=== PATIENT | female | born 1960 | race Caucasian/White ===

== ENCOUNTER 2018-06-21 01:56 | Outpatient (CLI) | payer OTHER, SELFPAY ==
[2018-06-21 09:53] LABS: Abs Immature Grans 0.01 k/cumm (0.0-0.09); Absolute Basophil Count 0.03 k/cumm (0.0-0.2); Absolute Eosinophil Count 0.06 k/cumm (0.0-0.7); Absolute Lymphocyte Count 1.19 k/cumm (1.2-3.4); Absolute Monocyte Count 0.85 k/cumm (0.11-0.7); Absolute Neutrophil Count 2.74 k/cumm (1.2-6.7); Basophils % 0.6; Eosinophils % 1.2; HGB 14.9 g/dL (12.0-15.5); Immature Grans % 0.2; Lymphocytes % 24.4; Mean Corp. HGB Concentration 33.9 g/dL (32.0-36.0); Mean Corpuscular Hemoglobin 30.7 pg (27.0-33.0); Mean Corpuscular Volume 90.7 fL (80-95); Mean Platelet Volume 8.6 fL (8.0-11.0); Monocytes % 17.4; Neutrophils % 56.2; Platelet Count 342 x1000/uL (130-400); RBC 4.85 m/cumm (4.00-5.20); RBC Distribution Width 13.1 % (11.7-14.6); White Blood Cell Count 4.88 k/cumm (4.4-10.8)
[2018-06-21 10:58] LABS: ALT 24 U/L (12-78); AST 22 U/L (15-37); Alkaline Phosphatase 70 U/L (46-116); Anion Gap 10.4 mmol/L (3-11); BUN 9 mg/dL (7-18); Bilirubin, Total 0.3 mg/dL (0.2-1.0); CO2 26.6 mmol/L (21.0-32.0); CREATININE 0.68 mg/dL (0.55-1.02); Calcium 9.5 mg/dL (8.5-10.1); Chloride 102 mmol/L (98-107); Glucose 105 mg/dL (70-100); Potassium 4.3 mmol/L (3.5-5.1); Sodium 139 mmol/L (136-145); TSH (W/Ref FT4) 1.69 uIU/mL (0.358-3.74); Total Protein 7.2 g/dL (6.4-8.2)
== END 2018-06-21 02:16 ==
PROVIDERS: PCP Family Medicine; Visit Provider Family Medicine
DX: Z00.00 Encounter for general adult medical examination without abnormal findings (principal); Z13.0 Encounter for screening for diseases of the blood and blood-forming organs and certain disorders involving the immune mechanism; F41.9 Anxiety disorder, unspecified; Z13.228 Encounter for screening for other metabolic disorders
CPT/HCPCS: 36415; 80053; 84443; 85025

== ENCOUNTER 2019-05-21 11:05 | Outpatient (CLI) | payer OTHER, SELFPAY ==
--- NOTE | 2019-05-21 10:45 | DI.RAD_ITS ---
EXAM: XR CERVICAL SPINE COMP 4-5V INDICATION: pain. COMPARISON: No exams were available for comparison TECHNIQUE: 2D digital imaging was performed. FINDINGS: The odontoid is intact. The lateral masses are well aligned. There is normal alignment of the cervical spine. There is disc space narrowing from C2-C3 through C6-C7. There are endplate osteophytes at all levels of the cervical spine. There is neural foraminal narrowing at C3-4, C4-C5 and C6-C7 on the right an d C4-C5 and C5-C6 on the left. No acute fractures or subluxations are seen in the cervical spine. The prevertebral soft tissues are unremarkable. IMPRESSION: Moderate degenerative changes in the cervical spine.
--- NOTE | 2019-05-21 11:00 | DI.RAD_ITS ---
EXAM: XR WRIST RT COMPLETE INDICATION: pain. COMPARISON: No exams were available for comparison TECHNIQUE: 2D digital imaging was performed. FINDINGS: There is no acute fracture or dislocation. The articular surfaces are well maintained. The bones ar e intact and normally mineralized. The soft tissues are unremarkable. IMPRESSION: No acute abnormality.
== END 2019-05-21 11:25 ==
PROVIDERS: PCP Nurse Practitioner; Visit Provider Orthopaedic Surgery
DX: M25.531 Pain in right wrist (principal); M54.2 Cervicalgia; M50.321 Other cervical disc degeneration at C4-C5 level; M50.322 Other cervical disc degeneration at C5-C6 level; M50.323 Other cervical disc degeneration at C6-C7 level
CPT/HCPCS: 72050; 73110

== ENCOUNTER 2020-07-22 04:47 | Outpatient (CLI) | payer OTHER, SELFPAY ==
[2020-07-22 09:15] LABS: Hemoglobin A1C 5.5 % (<5.7)
[2020-07-22 10:19] LABS: CREATININE 0.84 mg/dL (0.55-1.02); Calculated LDL 152 mg/dL (<100); Cholesterol 247 mg/dL (<200); HDL Cholesterol 90 mg/dL (40-60); Triglyceride 25 mg/dL (<150)
== END 2020-07-22 05:07 ==
PROVIDERS: PCP Nurse Practitioner; Visit Provider Nurse Practitioner
DX: M18.11 Unilateral primary osteoarthritis of first carpometacarpal joint, right hand (principal); Z13.6 Encounter for screening for cardiovascular disorders; Z13.1 Encounter for screening for diabetes mellitus
CPT/HCPCS: 36415; 80061; 82565; 83036

== ENCOUNTER 2020-08-04 02:37 | Outpatient (CLI) | payer OTHER, SELFPAY ==
--- NOTE | 2020-08-04 07:30 | DI.US_ITS ---
EXAM: US SOFT TISSUE HEAD OR NECK CLINICAL HISTORY: RT SIDED NECK LUMP, R22.1. TECHNIQUE: Ultrasound was performed using standard protocol. COMPARISON: No exams were available for comparison FINDINGS: Sonographic assessment utilizing grayscale and color Doppler imaging was performed and targeted to th e area of clinical concern. Palpable abnormality corresponds to the submandibular gland. The gland appears heterogeneous and atr ophic. No focal mass is identified. The left submandibular gland has a normal appearance. Normal s ized cervical lymph nodes are noted. Right submandibular gland measures 2.6 x 0.9 by 2.3 cm. Left s ubmandibular gland measures 4.7 cm by 1.3 cm by 2.5 cm.. IMPRESSION: Heterogeneous, atrophic appearing right submandibular gland appears to correspond to the palpable ab normality. This could be secondary to prior episodes of sialadenitis. DATA REPOSITORY:
== END 2020-08-04 02:57 ==
PROVIDERS: PCP Nurse Practitioner; Visit Provider Nurse Practitioner
DX: R22.1 Localized swelling, mass and lump, neck (principal); K11.8 Other diseases of salivary glands
CPT/HCPCS: 76536

== ENCOUNTER 2021-05-28 02:09 | Outpatient (CLI) | payer OTHER, SELFPAY ==
--- NOTE | 2021-05-28 06:45 | DI.MAMMO_ITS ---
Exam(s) MAMMO SCREENING EXAM: MAMMO SCREENING CLINICAL HISTORY: screening, Z13.29 TECHNIQUE: Mammograms were interpreted according to the usual protocol including computer analysis w XMS Penvision CAD system, tomosynthesis and C-view imaging. COMPARISON: 2006 through 2019 from [facility]. FINDINGS: The breasts are composed of heterogeneously dense fibroglandular densities, Breast Density category C . No suspicious masses or suspicious microcalcifications are seen. No skin thickening or abnormal axillary lymph nodes are seen. There has been no significant change from prior exams. IMPRESSION: BI-RADS Category 1, Negative mammogram. Yearly screening mammography is recommended. Breast Density Category C, heterogeneously Dense. The mammogram demonstrates the patient's breast tissue is dense. Dense breast tissue is very common a nd is not abnormal but dense breast tissue can make it harder to find cancer on a mammogram. Also, de nse breast tissue may increase breast cancer risk. This information about the result of the mammogram report was provided to the patient to raise their awareness. Use this report when you speak with the patient about their risks for breast cancer, which includes their family history. At that time, you may recommend additional screening tests (Ultrasound or MRI) as they might be useful based on their r isk. A negative radiographic report should not delay biopsy if a dominant or clinically suspicious mass is present. Up to ten percent of cancers are not identified on mammography. A negative report may reinforce clinical impression. Adenosis and dense breasts may obscure an underlying neoplasm. False positive reports average 6 to 10%.
== END 2021-05-28 02:29 ==
PROVIDERS: PCP Nurse Practitioner; Visit Provider Nurse Practitioner
DX: Z12.31 Encounter for screening mammogram for malignant neoplasm of breast (principal)
CPT/HCPCS: 77063; 77067

== ENCOUNTER 2021-07-22 03:05 | Outpatient (CLI) | payer OTHER, SELFPAY ==
--- NOTE | 2021-07-22 08:00 | DI.DEXA_ITS ---
Exam(s) XR DEXA BONE DENSITY W/WO REBA EXAM: XR DEXA BONE DENSITY W/WO REBA CLINICAL HISTORY: screeNING FOR OSTEOPOROSIS IN POSTMENOPAUSAL WOMAN,Z78.0 TECHNIQUE: CloudSafe C densitometer COMPARISON: No exams were available for comparison FINDINGS: Lateral view of the thoracic and lumbar spine shows no evidence of compression fractures. Bone mineral density measurements of the lumbar spine correspond to a total T-score of 0.1, in the no rmal range. Bone mineral density measurements of the left hip correspond to a total T-score of -1.9. The femora l neck T-score is -2.2, in the osteopenic range. The left forearm bone mineral density measurements correspond to a T-score of the distal 3rd of -1.4 . Total T-score -2.4. WSHO FRAX: ten year risk of major osteoporotic fracture calculated at 18 percent. Ten year risk of hip fracture calculated at 2.8 percent.. IMPRESSION: Normal bone mineral density of the lumbar spine. Osteopenia of the left hip and left forearm.
== END 2021-07-22 03:25 ==
PROVIDERS: PCP Nurse Practitioner; Visit Provider Nurse Practitioner
DX: Z78.0 Asymptomatic menopausal state (principal); Z13.820 Encounter for screening for osteoporosis; M85.89 Other specified disorders of bone density and structure, multiple sites
CPT/HCPCS: 77080

== ENCOUNTER → 2022-04-29 16:49 | Outpatient (CLI) | payer OTHER, SELFPAY ==
--- NOTE | 2022-04-29 16:30 | DI.RAD_ITS ---
Exam(s) XR CHEST 2V PA LATERAL EXAM: XR CHEST 2V PA LATERAL CLINICAL HISTORY: COUGH--R05.9. TECHNIQUE: 2D digital imaging was performed. COMPARISON: No exams were available for comparison FINDINGS: 2 views: Heart size is upper normal. The mediastinum is not widened. Lungs are clear. No infiltrates nor pleural effusions. IMPRESSION: No acute pulmonary findings. DATA REPOSITORY: RADIATION DOSE DELIVERED:
--- NOTE | 2022-04-29 17:39 | DI.VRAD_ITS ---
PROCEDURE INFORMATION: Exam: XR Chest Exam date and time: 04/29/2022 5:03 PM Age: 62 years old Clinical indication: Cough TECHNIQUE: Imaging protocol: Radiologic exam of the chest. Views: 2 views. COMPARISON: CR XR CERVICAL SPINE COMP 4-5V 05/21/2019 11:05 AM FINDINGS: Lungs: Unremarkable. No consolidation. Pleural spaces: Unremarkable. No pleural effusion. No pneumothorax. Heart/Mediastinum: Unremarkable. No cardiomegaly. Bones/joints: Unremarkable. IMPRESSION: No acute findings. Dictated and Authenticated by: Analisa So MD. Ordering:CAMILLE Diaz MD
== END ==
PROVIDERS: PCP Nurse Practitioner; Visit Provider Physician Assistant
DX: R05.9 Cough, unspecified (principal)
CPT/HCPCS: 71046; 84443; 85025; 86308

== ENCOUNTER 2022-04-29 20:43 | Outpatient (REF) | payer OTHER, SELFPAY ==
[2022-04-29 20:55] LABS: Abs Immature Grans 0.01 10^3/uL (0.0-0.06); Absolute Basophil Count 0.05 10^3/uL (0.0-0.2); Absolute Eosinophil Count 0.18 10^3/uL (0.0-0.7); Absolute Lymphocyte Count 1.73 10^3/uL (1.2-3.4); Absolute Monocyte Count 0.76 10^3/uL (0.1-0.8); Absolute Neutrophil Count 3.65 10^3/uL (1.2-6.7); Basophils % 0.8; Eosinophils % 2.8; HCT 42.9 % (36.0-46.0); HGB 14.8 g/dL (11.2-15.7); Immature Grans % 0.2; Lymphocytes % 27.1; MCHC 34.5 % (32.0-36.0); MCV 90 fL (80-95); MPV 9.7 fL (8.0-11.0); Monocytes % 11.9; Neutrophils % 57.2; Platelet Count 398 10^3/uL (130-400); RBC 4.77 10^6/uL (3.93-5.22); RDW 12.7 % (11.7-14.6); WBC 6.38 10^3/uL (4.4-10.8)
[2022-04-29 21:02] LABS: Mono Screening Negative (Negative)
[2022-04-29 21:20] LABS: TSH (W/Ref FT4) 1.46 uIU/mL (0.36-3.74)
== END 2022-04-29 20:44 | disposition home or self-care (01) ==
LOC: LBN 20:43
PROVIDERS: PCP Nurse Practitioner; Visit Provider Physician Assistant
DX: R05.9 Cough, unspecified (principal)
CPT/HCPCS: 84443; 85025; 86308

== ENCOUNTER 2022-09-26 02:25 | Outpatient (CLI) | payer OTHER, SELFPAY ==
--- NOTE | 2022-09-26 07:15 | DI.MAMMO_ITS ---
Exam(s) MAMMO SCREENING EXAM: MAMMO SCREENING CLINICAL HISTORY: screening,z12.39. TECHNIQUE: Bilateral full field digital CC and MLO mammographic images were obtained with 3D tomosyn thesis and utilizing computer aided detection (CAD). COMPARISON: Prior mammograms were reviewed. FINDINGS: There has been no significant change in the appearance and distribution of the fibroglandular tissue. There are no new obvious spiculated masses nor malignant appearing microcalcification groups. Benign-appearing microcalcification group in medial aspect left breast is again noted as are other ca lcifications in both breasts. There are no new malignant-appearing microcalcification groups in eith er breast. There is no significant architectural distortion nor skin thickening-retraction. IMPRESSION: No radiographic evidence of malignancy. Stable benign-appearing findings. BI-RADS Category 1 - Negative Breast Density - Category C - Heterogeneously dense Breast density Category C or D implies that the patient has dense breast tissue. Dense breast tissue can make it harder to find cancer on a mammogram. Dense breast tissue is also associated with an incr eased risk of breast cancer. This information about the result of the mammogram report was provided to the patient to raise their awareness. Use this report when you speak with the patient about their risks for breast cancer, which includes their family history. At that time, you may recommend additional screening tests (Ultrasoun d or MRI) as these tests may add significant information. A negative radiographic report should not delay biopsy if a dominant or clinically suspicious mass is present. Up to ten percent of cancers are not identified on mammography. A negative report may reinforce clinical impression. Adenosis and dense breasts may obscure an underlying neoplasm. False positive reports average 6 to 10%. Patient will receive a letter notifying them of these results.
== END 2022-09-26 02:45 ==
LOC: DI 02:25
PROVIDERS: PCP Family Medicine; Visit Provider Nurse Practitioner Family
DX: Z12.31 Encounter for screening mammogram for malignant neoplasm of breast (principal); N60.81 Other benign mammary dysplasias of right breast; N60.82 Other benign mammary dysplasias of left breast
CPT/HCPCS: 77063; 77067

== ENCOUNTER 2023-06-13 15:10 | Outpatient (REF) | payer MEDICARE, SELFPAY ==
[2023-06-13 15:53] LABS: Bilirubin Negative (Negative); Blood Negative (Negative); Clarity Clear (Clear); Glucose Negative (Negative); Ketones Negative (Negative); Leukocyte Esterase Negative (Negative); Nitrite Negative (Negative); Specific Gravity 1.015 (1.005-1.025); Urobilinogen 0.2 mg/dL (Up to 0.2)
== END 2023-06-13 15:11 | disposition home or self-care (01) ==
LOC: LBN 15:10
PROVIDERS: PCP Family Medicine; Visit Provider Nurse Practitioner Family
DX: R39.15 Urgency of urination (principal)
CPT/HCPCS: 81003

== ENCOUNTER 2023-07-12 17:53 | Outpatient (REF) | payer MEDICARE, SELFPAY | END 2023-07-12 17:54 | disposition home or self-care (01) | LOC: LBN 17:53 | PROVIDERS: PCP Family Medicine; Visit Provider Physician Assistant | DX: J02.9 Acute pharyngitis, unspecified (principal) | CPT/HCPCS: 87070 ==

== ENCOUNTER 2023-09-07 09:07 | Outpatient (CLI) | payer MEDICARE, SELFPAY ==
[2023-09-07 10:18] LABS: HCT 43.3 % (36.0-46.0); HGB 14.6 g/dL (11.2-15.7); MCH 30.4 pg (27.0-33.0); MCHC 33.7 % (32.0-36.0); MCV 90 fL (80-95); Platelet Count 384 10^3/uL (130-400); RBC 4.81 10^6/uL (3.93-5.22); RDW 12.7 % (11.7-14.6); RDW-SD 42.1 fL; WBC 6.28 10^3/uL (4.4-10.8)
[2023-09-07 10:40] LABS: Calculated LDL 171 mg/dL (<100); Cholesterol 270 mg/dL (<200); HDL Cholesterol 94 mg/dL (40-60); Triglyceride 28 mg/dL (<150)
[2023-09-07 10:42] LABS: Hemoglobin A1C 5.4 % (<5.7)
[2023-09-07 10:44] LABS: ALT 24 U/L (14-59); AST 21 U/L (15-37); Albumin 3.9 g/dL (3.4-5.0); Alkaline Phosphatase 60 U/L (46-116); Anion Gap 9.2 mmol/L (3-11); BUN 10 mg/dL (7-18); Bilirubin, Total 0.6 mg/dL (0.2-1.0); CO2 27.8 mmol/L (21.0-32.0); CREATININE 0.8 mg/dL (0.55-1.02); Calcium 9.7 mg/dL (8.5-10.1); Chloride 102 mmol/L (98-107); Estimated GFR 81.72 (mL/min/1.73m2); Glucose 99 mg/dL (74-106); Sodium 139 mmol/L (136-145); Total Protein 7.2 g/dL (6.4-8.2)
== END 2023-09-07 09:08 | disposition home or self-care (01) ==
LOC: LOS 09:07
PROVIDERS: Nurse Practitioner Family; PCP Family Medicine; Referring Provider Family Medicine; Visit Provider Family Medicine
DX: R20.0 Anesthesia of skin (principal); Z80.3 Family history of malignant neoplasm of breast; M18.11 Unilateral primary osteoarthritis of first carpometacarpal joint, right hand; Z00.00 Encounter for general adult medical examination without abnormal findings; E11.51 Type 2 diabetes mellitus with diabetic peripheral angiopathy without gangrene; E78.5 Hyperlipidemia, unspecified
CPT/HCPCS: 36415; 80053; 80061; 85027; 83036

== ENCOUNTER → 2023-09-28 04:38 | Outpatient (CLI) | payer MEDICARE, SELFPAY ==
--- NOTE | 2023-09-28 15:35 | DI.MAMMO_ITS ---
Exam(s) MAMMO SCREENING EXAM: MAMMO SCREENING CLINICAL HISTORY: screening,z12.39 TECHNIQUE: Mammograms were interpreted according to the usual protocol including computer analysis w Side.Cr CAD system, tomosynthesis and C-view imaging. COMPARISON: [id number] FINDINGS: The breasts are composed of heterogeneously dense fibroglandular densities, Breast Density category C . No suspicious masses or suspicious microcalcifications are seen. Stable nodule superior left breast. No skin thickening or abnormal axillary lymph nodes are seen. There has been no significant change from prior exams. IMPRESSION: BI-RADS Category 2 - Negative Mammogram with benign findings. Yearly screening mammography is recommended. Breast Density Category C, heterogeneously Dense. The mammogram demonstrates the patient's breast tissue is dense. Dense breast tissue is very common a nd is not abnormal but dense breast tissue can make it harder to find cancer on a mammogram. Also, de nse breast tissue may increase breast cancer risk. This information about the result of the mammogram report was provided to the patient to raise their awareness. Use this report when you speak with the patient about their risks for breast cancer, which includes their family history. At that time, you may recommend additional screening tests (Ultrasound or MRI) as they might be useful based on their r isk. A negative radiographic report should not delay biopsy if a dominant or clinically suspicious mass is present. Up to ten percent of cancers are not identified on mammography. A negative report may reinforce clinical impression. Adenosis and dense breasts may obscure an underlying neoplasm. False positive reports average 6 to 10%.
== END ==
PROVIDERS: PCP Family Medicine; Visit Provider Family Medicine
DX: Z12.31 Encounter for screening mammogram for malignant neoplasm of breast (principal)
CPT/HCPCS: 77063; 77067

== ENCOUNTER → 2023-10-10 08:27 | Outpatient (BNVA) | payer MEDICARE, SELFPAY | PROVIDERS: PCP Family Medicine; Referring Provider Family Medicine; Visit Provider Student in an Organized Health Care Education/Training Program | DX: M65.342 Trigger finger, left ring finger (principal); M65.352 Trigger finger, left little finger | CPT/HCPCS: 99202 ==

== ENCOUNTER 2023-10-19 13:08 | Day surgery (SDC) | payer MEDICARE, SELFPAY ==
--- NOTE | 2023-10-19 12:41 | W.PM.DSUDISC ---
Date of service: 10/19/23 Time of Service: 14:30 Discharge Plan Disposition Patient Disposition: Home Condition: Stable Discharge Details Attending Provider: Lloyd Dasilva Primary Care Provider: Florin Townsend Home Meds and New Rx's Prescriptions: Continued timolol 0.25 % drops 1 drp ophthalmic (eye) DAILY latanoprost 0.005 % drops 1 drp ophthalmic (eye) DAILY estradiol [Estrace] 0.01 % (0.1 mg/gram) cream 1 g vaginal .2x/week Qty: 42.5 2RF Discharge Instructions Additional Instructions: Surgery: Left ring and little finger trigger releases Activity: Protect hand for a few weeks. Gently increase finger motion and hand gripping to prevent stiffness. Recommend elevation to minimize swelling and discomfort. Prescriptions: None Resume home medicines, use [id number] Tylenol (acetaminophen) as needed for mild pain and ibuprofen (Motrin) or naproxen (Aleve) as needed for moderate to severe pain and swelling. Dressings: Leave dressing in place for 3 days. May then remove and leave open to air or cover incision with Band-Aid. May get wet after 5 days. Follow-up: 10-[address] Dasilva Please call the office during business hours with any questions or concerns. Discharge Orders Discharge Orders: Discharge Order (Routine); Ordered 10/19/23 Ordered By: Lloyd Dasilva DS: Diagnosis Discharge Diagnosis (1) Trigger finger, left ring finger: Status: Acute (2) Trigger finger, left little finger: Status: Acute
--- NOTE | 2023-10-19 12:42 | ROE_ITS ---
Date of service: 10/19/23 Time of Service: 14:30 Operative Note Operative Note DATE OF PROCEDURE: 10/19/23 PRE-OP DIAGNOSIS: Left ring and small trigger fingers PROCEDURE: 1. Left ring finger trigger release, CPT# 37880 2. Left small finger trigger release, CPT# 09606 SURGEON: Lloyd Dasilva SENIOR RESIDENT CARE DIRECTOR: None None ANESTHESIA TYPE: Local By Surgeon Refer to Anesthesia Record ESTIMATED BLOOD LOSS: 2 TOURNIQUET TIME: 0 COMPLICATIONS: None Patient was transported to: same day Patient's condition: stable Indications: Please see complete medical record for details. Procedure Description: In the operating room, the patient was positioned supine on the stretcher. All bony prominences were padded. Preoperative antibiotics were omitted. The correct patient, procedure, and side of the procedure were all verified prior to beginning. Local anesthesia was induced about the sites with 10cc of 1% lid ocaine containing epinephrine buffered with 1 cc of sodium bicarbonate. The Left hand was prepped and draped in the usual sterile fashion. Proper analgesia was confirmed. A small volar longitudinal approach was made overlying the ring finger MCP joint. Soft tissues were swept to the sides and retracted to expose the A1 gricel. The release was started centrally with a knife and completed at the proximal and distal margins with tenotomy scissors. Care was taken to protect the flexor tendons. The tendons were inspected and showed moderate fraying and bulbous degeneration, but no significant tearing. Appropriate flexor tendon excursion was confirmed. The patient readily demonstrated full range of motion of the finger without triggering. A small volar longitudinal approach was made overlying the small finger MCP joint. Soft tissues were swept to the sides and retracted to expose the A1 gricel. The release was started centrally with a knife and completed at the proximal and distal margins with tenotomy scissors. Care was taken to protect the flexor tendons. The tendons were inspected and were intact. Appropriate flexor tendon excursion was confirmed. The patient readily demonstrated full range of motion of the finger without triggering. The small incisions were irrigated and then dried. Hemostasis was appropriate. The incisions were closed using 3-0 nylon in a horizontal mattress fashion. Xeroform was applied followed by gauze and the hand was gently compressed with an [employer] bandage. The patient tolerated local anesthesia without complication and was transferred out of the operating room in a stable condition.
[2023-10-19 13:34] VITALS: BP 121/83; PULSE 75; RESP 16; TEMP 36.6; O2SAT 98
[2023-10-19] MEDS: Lidocaine 1% Multi-Dose W/EPI 1/100,000 50 ML VIAL (14:29)
[2023-10-19] MEDS: Sodium Bicarbonate 50 MEQ/50 ML VIAL (14:29)
[2023-10-19 14:59] VITALS: BP 119/79; PULSE 59; RESP 16; TEMP 36.5; O2SAT 98
== END 2023-10-19 15:20 | disposition home or self-care (01) ==
LOC: SUR 13:09
PROVIDERS: PCP Family Medicine; Visit Provider Student in an Organized Health Care Education/Training Program
PROC: (CPT 26055; principal; 2023-10-19 14:30)
DX: M65.342 Trigger finger, left ring finger (principal); M65.352 Trigger finger, left little finger
CPT/HCPCS: 26055 ×2; J2004

== ENCOUNTER → 2023-11-01 09:27 | Outpatient (BNVA) | payer MEDICARE, SELFPAY | PROVIDERS: PCP Family Medicine; Referring Provider Family Medicine; Visit Provider Student in an Organized Health Care Education/Training Program | DX: Z47.89 Encounter for other orthopedic aftercare (principal); R60.0 Localized edema ==

== ENCOUNTER → 2024-05-31 07:45 | Outpatient (BNVA) | payer MEDICARE, SELFPAY | PROVIDERS: PCP Family Medicine; Referring Provider Family Medicine; Visit Provider Physical Therapy Assistant | DX: L72.3 Sebaceous cyst (principal) | CPT/HCPCS: 11401; 99213 ==

== ENCOUNTER 2024-09-26 01:33 | Outpatient (CLI) | payer MEDICARE, SELFPAY ==
[2024-09-26 16:09] LABS: Cholesterol 235 mg/dL (<200); HDL Cholesterol 98 mg/dL (>or=50)
[2024-09-26 16:13] LABS: Triglyceride <25 mg/dL (<150)
[2024-09-26 16:49] LABS: LDL CHOLESTEROL 128 mg/dL (<100)
[2024-09-27 10:02] LABS: HBs Antibody, Quant 205.2 mIU/mL (See Note); Hep B Surface Ab Positive (See Note); Hepatitis B Core Antibody Negative (Negative); Hepatitis B Surface Antigen Negative (Negative)
[2024-09-27 10:07] LABS: Hepatitis C Ab w Rflx HCV PCR Negative (Negative)
[2024-09-27 10:17] LABS: Measles IgG Antibody Positive (See Note)
[2024-09-27 11:56] LABS: HIV-1/2 Ag & Ab Screen Negative (Negative)
== END 2024-09-26 01:34 | disposition home or self-care (01) ==
PROVIDERS: PCP Family Medicine; Visit Provider Family Medicine
DX: Z11.59 Encounter for screening for other viral diseases (principal); E78.5 Hyperlipidemia, unspecified; Z00.00 Encounter for general adult medical examination without abnormal findings
CPT/HCPCS: 36415; 80061; 83721; 86704; 86706; 86803; 87340; 87389; 86765

== ENCOUNTER 2024-10-24 00:39 | Outpatient (CLI) | payer MEDICARE, SELFPAY ==
--- NOTE | 2024-10-24 06:30 | DI.MAMMO_ITS ---
Exam(s) MAMMO SCREENING EXAM: MAMMO SCREENING CLINICAL HISTORY: screening,z12.39. TECHNIQUE: Bilateral full field digital CC and MLO mammographic images were obtained with 3D tomosyn thesis and utilizing computer aided detection (CAD). COMPARISON: Prior mammograms were reviewed. FINDINGS: Fibroglandular tissue pattern is again noted be moderately dense There are no new right breast findings. In the left breast on the MLO 3D imaging there is a in asymmetric density-possible nodule located 10 cm in from the nipple on the MLO view, slightly above the midline. This measures approximately 8 x 4 mm. May represent a benign intramammary lymph node but was not evident on prior studies. There are no malignant-appearing microcalcifications in this group nor elsewhere in either breast. There is no significant architectural distortion nor skin thickening-retraction. IMPRESSION: 1. No radiographic evidence of malignancy in the right breast. 2. Nodular density in the left breast as seen on the MLO view, 10 cm in from the nipple. Spot compre ssion left breast MLO view and breast ultrasound recommended. BI-RADS Category 0 - Incomplete: Need additional imaging evaluation Breast Density - Category C - Heterogeneously dense Breast density Category C or D implies that the patient has dense breast tissue. Dense breast tissue can make it harder to find cancer on a mammogram. Dense breast tissue is also associated with an incr eased risk of breast cancer. This information about the result of the mammogram report was provided to the patient to raise their awareness. Use this report when you speak with the patient about their risks for breast cancer, which includes their family history. At that time, you may recommend additional screening tests (Ultrasoun d or MRI) as these tests may add significant information. A negative radiographic report should not delay biopsy if a dominant or clinically suspicious mass is present. Up to ten percent of cancers are not identified on mammography. A negative report may reinforce clinical impression. Adenosis and dense breasts may obscure an underlying neoplasm. False positive reports average 6 to 10%. Patient will receive a letter notifying them of these results.
--- NOTE | 2024-10-24 06:30 | DI.DEXA_ITS ---
Exam(s) XR DEXA BONE DENSITY W/WO REBA EXAM: XR DEXA BONE DENSITY W/WO REBA CLINICAL HISTORY: osteopenia,screening for osteoporosis in postmenopausal woman,z78.0 TECHNIQUE: Routine DEXA evaluation of the lumbar spine, hip, or forearm. COMPARISON: CR XR DEXA BONE DENSITY W/WO REBA from 07/22/2021 FINDINGS: Performed on a Hologic unit. Lateral image: Lateral image reveals superior endplate compression fractures of L3 and L5 which are m ore evident than 07/22/2021. Lumbar Spine total T-score: 0.7. Prior reading in July 2021 was 0.2 Hip total T-score:-2.1. Prior reading in July 2021 was -1.9 Independent reading at the level of the femoral neck yields T-score of -2.5 which is in the osteopor osis range Forearm total T-score: -1.4 IMPRESSION: Bone mineral density measures in the osteoporosis range at the level of the femoral neck. Fracture r isk is high. Note: Any spine fracture indicates 5x risk for subsequent spine fracture and 2x risk for subsequent h ip fracture. World Health Organization criteria for BMD interpretation classify patients: Normal...... T- Score at or above -1.0 Osteopenic... T- Score between -1.0 and -2.5 Osteoporosis... T-Score at or below -2.5
== END 2024-10-24 00:59 ==
LOC: DI 00:39
PROVIDERS: PCP Family Medicine; Visit Provider Family Medicine
DX: Z78.0 Asymptomatic menopausal state (principal); Z12.31 Encounter for screening mammogram for malignant neoplasm of breast; Z13.820 Encounter for screening for osteoporosis
CPT/HCPCS: 77063; 77067; 77080

== ENCOUNTER 2024-10-31 01:26 | Outpatient (CLI) | payer MEDICARE, SELFPAY ==
--- NOTE | 2024-10-31 | DI.US_ITS ---
Exam(s) MG MAMMO SCREEN CALL BACK UNI US BREAST LT LIMITED EXAM: MG MAMMO SCREEN CALL BACK UNI and U/S breast LT limited CLINICAL HISTORY: F/U ABNL MAMMO, NODULAR DENSITY LT BREAST, R92.8. TECHNIQUE: Craniocaudal and mediolateral oblique Full Field Digital Mammography views of the left br east with Computer Aided Diagnosis followed by Tomosynthesis and limited left breast ultrasound. COMPARISON: Comparison is made with prior examinations. FINDINGS: Mammography/Tomosynthesis: Masses/Architectural Distortion: The area of concern in the posterior superior left breast on the MLO view is less prominent on the current examination. No mass is identified. There are no areas of ar chitectural distortion. There is a biopsy clip in in nodule at the 12 o'clock position of the left b reast. Microcalcifictions: No suspicious pleomorphic-type are seen. Skin Thickening/Nipple Retraction: None. Limited left breast US: Echotexture: Normal appearance of the glandular tissue. Shadowing: No suspicious foci. Cyst: None. Solid lesions: There is an ovoid well-circumscribed nodule at the 12 o'clock position of the left fabiana ast 6 cm from the nipple. This corresponds to the nodule seen with the biopsy clip. No suspicious m asses are seen. Ductal dilation: None. IMPRESSION: 1. No evidence of malignancy is noted. 2. Unless there is more urgent need, follow-up screening mammography is recommended, as per [employer] guidelines. 3. The findings were discussed with the patient on the date of the examination. BI-RADS Category 2 - Benign Findings Breast Density - Category C - Heterogeneously dense Breast density Category C or D implies that the patient has dense breast tissue. Dense breast tissue can make it harder to find cancer on a mammogram. Dense breast tissue is also associated with an incr eased risk of breast cancer. This information about the result of the mammogram report was provided to the patient to raise their awareness. Use this report when you speak with the patient about their risks for breast cancer, which includes their family history. At that time, you may recommend additional screening tests (Ultrasoun d or MRI) as these tests may add significant information. A negative radiographic report should not delay biopsy if a dominant or clinically suspicious mass is present. Up to ten percent of cancers are not identified on mammography. A negative report may reinforce clinical impression. Adenosis and dense breasts may obscure an underlying neoplasm. False positive reports average 6 to 10%. Patient will receive a letter notifying them of these results.
== END 2024-10-31 01:46 ==
LOC: DI 01:26
PROVIDERS: PCP Family Medicine; Visit Provider Family Medicine
DX: R92.8 Other abnormal and inconclusive findings on diagnostic imaging of breast (principal); Z12.31 Encounter for screening mammogram for malignant neoplasm of breast; N63.25 Unspecified lump in the left breast, overlapping quadrants
CPT/HCPCS: 76642; 77063; 77067

== ENCOUNTER 2024-11-29 01:22 | Outpatient (RCR) | payer MEDICARE, SELFPAY ==
[2024-11-29] MEDS: Denosumab 60 MG/ML SYR SC (09:27)
== END 2024-12-07 23:59 | disposition home or self-care (01) ==
LOC: INF 01:22
PROVIDERS: PCP Family Medicine; Visit Provider Family Medicine
DX: M81.0 Age-related osteoporosis without current pathological fracture (principal)
CPT/HCPCS: 96372; J0897

== ENCOUNTER 2025-06-13 01:03 | Outpatient (RCR) | payer MEDICARE, SELFPAY ==
[2025-06-13] MEDS: Denosumab 60 MG/ML SYR SC (09:06)
== END 2025-07-09 23:59 | disposition home or self-care (01) ==
LOC: INF 01:03
PROVIDERS: PCP Family Medicine; Visit Provider Family Medicine
DX: M81.0 Age-related osteoporosis without current pathological fracture (principal)
CPT/HCPCS: 96372; J0897